=== PATIENT | female | born 1955 | race Caucasian/White ===

== ENCOUNTER 2024-11-19 08:35 | Emergency (ER) | payer OTHER, MEDICAID, SELFPAY ==
--- OUTSIDE RECORDS SUMMARY | 2024-11-19 08:37 | XMS_ITS | Clinical Summary ---
Author Organization Counts include 234 beds at the [facility] Address [address], [place] [address] Care Team Providers Care Dye Range Tender Name Role Phone Erica Landa MD Primary Care Provider [phone] Source Comments You are receiving this document as you are listed as the primary care provider,follow-up provider, or the patient has been referred to you for consultation.This is in compliance with the Medicare and[facility] Hospital[facility] EHR Incentive Program,which states Providers who transition their patient to another setting of careor provider of care or refers their patient to another provider of care shouldprovide summary care record for each transition of care or referral. [facility] All[facility] Active Allergy Reactions Criticality Noted Date Comments Codeine 11/17/2005 Other reaction(s): *Unknown Meperidine Nausea And Vomiting 11/17/2005 Olanzapine Confusion,Other, see comments 12/06/2012 Pain Quetiapine Confusion 07/22/2018 delusions Risperidone Confusion 07/22/2018 Valproic Acid Confusion 07/22/2018 Medications ARIPiprazole (ABILIFY MAINTENA) 400 MG injectionIndic ations:Schizop hrenia Inject 200 mg intramuscularly every 4 weeks. NOTE DOSE IS 1ML NOT FULL 2ML. Next Due: 12/23/15 Indications: Schizophrenia 11/25/19 16 Active Additional Information Patient not taking.Reported on 03/08/2019 haloperidol decanoate (AKA HALDOL DECONOATE) 100 MG/ML injectionIndic ations:Schizop hrenia Inject 1 mL intramuscularly every 4 weeks. Next due 12/10/15. Indications: Schizophrenia 12/10/19 16 Active haloperidol (HALDOL) 10 MG tablet 01/30/20 19 Active Active Problems Problem Noted Date Diagnosed Date Schizoaffective disorder, ch ronic condition with acute exacerbation 11/24/2015 Schizoaffective disorder 11/19/2015 Social History Tobacco Use Types Packs/Day Years Used Date Smoking Tobacco: Every Day Cigarettes Smokeless Tobacco: Never Alcohol Use Standard Drinks/Week Comments No 0 (1 standard drink = 0.6 oz pur e alcohol) Comments Unknown Sex and Gender Information Value Date Recorded Sex Assigned at Not on file Legal Sex Female 7:25 AM CDT Gender Identity Not on file Sexual Orientation Not on file Last Filed Vital Signs Vital Sign Reading Time Taken Comments Blood Pressure 91/56 03/08/2019 11:17 AM CDT Pulse 110 03/08/2019 11:17 AM CDT Temperature 36.7 C (98.1 F) 03/08/2019 9:58 AM CDT Respiratory Rate 16 03/08/2019 9:58 AM CDT Oxygen Saturation 96% 03/08/2019 9:58 AM CDT Inhaled Oxygen Concentration - - Weight 90.6 kg (199 lb 12.8 oz) 11/23/2015 8:44 AM MIG TIG WELDER Height 160 cm (5' 3) 11/19/2015 10:22 PM MIG TIG WELDER Body Mass Index 35.39 11/19/2015 10:22 PM MIG TIG WELDER Plan of Treatment Health Maintenance Due Date Last Done Comments Colon Cancer Screening Plan Due 1955 Hep C Screening (Preventive Services) 1955 Mammogram 1955 DTaP/Tdap/Td (1 - Tdap) 1975 Pneumococcal 50+ Yrs (1 of 2 - PCV) 1975 Cholesterol 2001 Zoster/Shingles (1 of 2) 2006 Dexa 2021 COVID-19 Vaccine (2 - 2023-2 5 season) 2024 02/04/2021 Influenza (#1) 2024 Medicare Annual Wellness Visit 09/26/2024 RSV (1 - 1-dose 75+ series) 2031 HepA Aged Out No longer eligi ble based on patient's age to complete this topic HepB Aged Out No longer eligi ble based on patient's age to complete this topic Hib Aged Out No longer eligi ble based on patient's age to complete this topic IPV (Polio) Aged Out No longer eligi ble based on patient's age to complete this topic MCV4 Aged Out No longer eligi ble based on patient's age to complete this topic Meningococcal B Aged Out No longer el igible based on patient's age to complete this topic Insurance [facility] [address] [facility] Advance Directives * Full Code (Latest Code Status on File) Date Activated Date Inactivated Comments 11/19/2015 10:05 PM 11/25/2015 7:24 PM Care Teams Dye Range Tender Relationship Specialty Start Date End Date Erica Landa MD [address] [place] [address] PCP - General Obstetrics Gynecology 07/22/22
--- OUTSIDE RECORDS SUMMARY | 2024-11-19 08:37 | XMS_ITS | Encounter Summary ---
Author Organization [facility] Address [address] [place] [address] Care Team Providers Care Sales Technician Home Theater Name Role Phone Erica Landa MD Primary Care Provider [phone] Encounter Details Date Type Department Care Team (Late st Contact Info) Description 11/20/2015 Consent for Procedure/Treatme nt [facility] INFORMED CONSENT NEUROLEPTIC MEDICATIONS Social History Tobacco Use Types Packs/Day Years Used Date Smoking Tobacco: Every Day Cigarettes Alcohol Use Standard Drinks/Week Comments No 0 (1 standard drink = 0.6 oz pur e alcohol) Comments Unknown Sex and Gender Information Value Date Recorded Sex Assigned at Not on file Legal Sex Female 7:25 AM CDT Gender Identity Not on file Sexual Orientation Not on file documented as of this encounter Plan of Treatment Not on file documented as of this encounter Visit Diagnoses Not on filedocumented in this encounter Care Teams Sales Technician Home Theater Relationship Specialty Start Date End Date Erica Landa MD [address] [place] [address] PCP - General Obstetrics Gynecology 07/22/22 documented as of this encounter
--- OUTSIDE RECORDS SUMMARY | 2024-11-19 08:37 | XMS_ITS | Clinical Summary ---
Author Organization [facility] Address [address] [place] [address] Care Team Providers Care Coat Hanger Shaper Machine Operator Name Role Phone Erica Landa MD Primary Care Provider [phone] Allergies Active Allergy Reactions Criticality Noted Date Comments Aripiprazole Hallucinations 07/09/2021 Codeine *Unknown 11/17/2005 Benztropine Other - Describe In Comment Field 07/09/2022 suicidal thoughts Meperidine *Unknown,Nausea And Vomiting 11/17/2005 Divalproex Sodium Hallucinations 07/22/2018 [place] Psychosis 10/31/2019 Olanzapine Hallucinations,Other - Describe In Comment Field 12/06/2012 Pain Risperidone Hallucinations 07/22/2018 Quetiapine Hallucinations 07/22/2018 delusions Medications ibuprofen (ADVIL; MOTRIN) 600 mg tabletIndications :Acute midline low back pain without sciatica,Bilatera l hip pain Take 1 Tablet (600 mg) by mouth 4 times daily if needed for Pain. Maximum of 3200 mg in 24 hours. 40 Tablet 08/13/20 24 Active haloperidol decanoate (HaldoL Decanoate) 100 mg/mL intramuscular injection Inject intramuscular one time. 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 Noncompliance 12/05/2018 Hypokalemia 12/05/2018 Pituitary adenoma 08/21/2018 Pes planus 07/30/2013 Schizoaffective disorder, bipolar type 7 HYPERPROLACTINEMIA 01/07/2004 AMENORRHEA 01/03/2004 HERNIA, UMBILICAL W/O OBSTRUCTION/GANGRENE 01/02 TOBACCO USE Resolved Problems Problem Noted Date Diagnosed Date Resolved Date Delusional thoughts 08/21/2012 12/07/19 19 Anal pruritus 05/26/2011 07/02/2013 External hemorrhoids without mention of complication 05/26/2011 07/02/2013 Low back pain 03/28/2011 07/02/2013 Colon cancer screening 06/11/201007/02 Encounter for long-term (cur rent) use of other medications 10/04/2007 07/02/2013 PITUITARY ADENOMA 01/07/2004 07/02/2013 Overview (03/18/2009): last prolactin normal 03/04 off of medication - plan to see Dr. Sauceda summer 2009 for repeat MRI and prolactin measurement. Encounters Date Type Department Care Team Description 10/03/2024 Telephone [facility] [address] [place] [address] oLri Jeong PA Appointment 10/01/2024 Telephone [facility] [address] [place] [address] Erica Landa MD Questions 09/17/2024 11:00 AM RETAIL ACCOUNT REPRESENTATIVE Nurse/Clinic Staff Only [facility] [address] [place] [address] Injection (Medication) 09/17/2024 Travel 09/14/2024 Telephone [facility] [address] [place] [address] Cristina Ann MD 09/14/2024 Telephone [facility] [address] [place] [address] rEica Landa MD Questions 09/05/2024 10:15 AM RETAIL ACCOUNT REPRESENTATIVE Office Visit [facility] [address] [place] [address] Cristina Ann MD Medication Management 09/05/2024 Travel 09/03/2024 Telephone [facility] [address] [place] [address] Cristina Ann MD Health Maintenance Update (Requesting Call Back) 08/30/2024 11:20 AM RETAIL ACCOUNT REPRESENTATIVE Office Visit [facility] [address] [place] [address] Humera Avendano MD Consult (Off balance x 1 year ) 08/30/2024 Travel from Last 3 Months Family History Medical History Relation Name Comments Good Health Brother 1 Good Health Brother 2 Good Health Brother 3 Good Health Brother 4 Good Health Father Bipolar disorder Maternal Aunt Other Mother Parkinson's Dis ease Good Health Sister Cancer-breast No Family History Relation Name Status Comments Brother 1 Alive Brother 2 Alive Brother 3 Alive Brother 4 Alive Father Alive Maternal Aunt Mother Alive Sister Alive Social History Tobacco Use Types Packs/Day Years Used Date Smoking Tobacco: Some Days Cigarettes 1 16.1 Started: 2008 Smokeless Tobacco: Never Tobacco Cessation:Ready to Q uit: No; Counseling Given: Yes Comments:Using Nicotine inhaler once in awhile Alcohol Use Standard Drinks/Week Comments Not Currently 0 (1 standard drink = 0.6 oz pur e alcohol) rare use PHQ-2 Answer Date Recorded PHQ-2 TOTAL SCORE 0 09/05/2024 Social Connections Answer Date Recorded Do you often feel lonely or isolated from those around you? 0 04/10/2024 Alcohol Use Answer Date Recorded How often do you have a drink containing alcohol ? 1 11/01/2021 How many drinks containing a lcohol do you have on a typical day when you are drinking? 0 11/01/2021 How often do you have five or more drinks on one occasion? 0 11/01/2021 Financial Resource Strain Answer Date R ecorded Difficulty of Paying Living Expenses 2 04/10/2024 Difficulty of Paying Living Expenses 1 04/10/2024 Food Insecurity Answer Date Recorded Do you worry your food will run out before you are able to buy more? 2 04/10/2024 Transportation Needs Answer Date Record ed Does lack of transportation keep you from medica l appointments? 1 04/10/2024 Does lack of transportation keep you from work, meetings or getting things that you need? 1 04/10/2024 Housing Stability Answer Date Recorded What is your housing situation today? 1 04/10/2024 Interpersonal Safety Answer Date Record ed Are you being hit, kicked, p ushed or yelled at (see row info)? No 05/24/2024 Interpersonal Safety Abuse 12 - 18 Not on file 05/24/2024 Interpersonal Safety Ambulatory Vulnerability No t on file 05/24/2024 Utilities Answer Date Recorded Do you have trouble paying f or utilities (for example, heat, electricity, water, phone)? 2 04/10/2024 Comments No Sex and Gender Information Value Date Recorded Sex Assigned at Not on file Legal Sex Female 5:24 AM RETAIL ACCOUNT REPRESENTATIVE Gender Identity Not on file Sexual Orientation Not on file Occupation Industry Job Start Date Job End Date Unemployed Not on file Not on file Not on file Obstetrics History Para Term AB IAB SAB Ectopic Multiple Livin g Live Births 2 2 2 2 Date Outcome GA Total Labor Labor/2nd/3rd Weight Sex Type Anes PTL Lilia A1 A5 Name Clin 1984 Term 1986 Term Last Filed Vital Signs Vital Sign Reading Time Taken Comments Blood Pressure 98/62 09/05/2024 10:28 AM RETAIL ACCOUNT REPRESENTATIVE Pulse 105 09/05/2024 10:28 AM RETAIL ACCOUNT REPRESENTATIVE Temperature 36.7 C (98.1 F) 05/24/2024 4:19 AM CDT Respiratory Rate 18 05/24/2024 4:19 AM CDT Oxygen Saturation 96% 08/30/2024 11:10 AM RETAIL ACCOUNT REPRESENTATIVE Inhaled Oxygen Concentration - - Weight 88.9 kg (196 lb) 09/05/2024 10:28 AM RETAIL ACCOUNT REPRESENTATIVE Height 160 cm (5' 3) 05/24/2024 4:16 AM CDT Body Mass Index 34.72 05/24/2024 4:16 AM CDT Plan of Treatment Health Maintenance Due Date Last Done Comments Tdap 1967 Hepatitis C screening for ag e 18-79 1974 Pneumococcal series for age 50+ (1 of 2 - PCV) 1975 Tetanus booster [address] (for lung CA) ag e 50-80 2006 Zoster (shingles) series for age 50+ (1 of 2) 2006 Mammogram for age 45-75 07/11/2019 07/11/20 18, 06/28/2018, 03/08/2016, Additional history exists Colonoscopy through age 75 06/15/2020 06/15/2010 DEXA/DXA scan for age 65+ 2021 Medicare Wellness for age 65+ 2021 BMI (ht and wt on same day) for age 18+ 01/25/2023 01/25/2022, 11/25/2021, 07/09/2021, Additional history exists COVID-19 vaccine series ( season) 2024 02/04/2021 Influenza for age 65+ 05/27/2024 Depression screening for age 12+ 09/05/2025 09/05/2024, 09/05/2024, 09/03/2024, Additional history exists Lipids for age 45-75 11/03/2026 11/03/2021, 07/09/2016, 06/19/2014, Additional history exists RSV vaccine for adults or (1 - 1-dose 75+ series) 2031 Medical Devices Implanted Type Area Coal Chute Worker Device Identifier Shelf Expiration Date Model / Serial / Lot Plate 95mm 8 Hole One-Third Tubular - [id number] Implanted:Qty: 1 on 07/10/2022 by Deejay Banuelos MD at [facility] Right: Ankle [employer] [id number] / / NA Screw Sm Joint 3.5x34mm Axsos Jeremiah Titnm - [id number] Implanted:Qty: 1 on 07/10/2022 by Deejay Banuelos MD at [facility] Right: Ankle [employer] [id number] / / NA Screw Sm Joint 3.5x36mm Axsos Jeremiah Titnm - [id number] Implanted:Qty: 2 on 07/10/2022 by Deejay Banuelos MD at [facility] Right: Ankle [employer] [id number] / / NA Distal Anterolateral Tibia Plate Implanted:Qty: 1 on 07/10/2022 by Deejay Banuelos MD at [facility] Right: Ankle [employer] [id number] / / NA Screw Sm Joint 4x42mm Axsos Lock - [id number] Implanted:Qty: 1 on 07/10/2022 by Deejay Banuelos MD at [facility] Right: Ankle [employer] [id number] / / NA Screw Sm Joint 4x44mm Axsos Lock - [id number] Implanted:Qty: 2 on 07/10/2022 by Deejay Banuelos MD at [facility] Right: Ankle [employer] [id number] / / NA Screw Sm Joint 4x46mm Axsos Lock - [id number] Implanted:Qty: 1 on 07/10/2022 by Deejay Banuelos MD at [facility] Right: Ankle [employer] [id number] / / NA Screw Sm Joint 3.5x12mm Variax 2 Lock Titnm - [id number] Implanted:Qty: 2 on 07/10/2022 by Deejay Banuelos MD at [facility] Right: Ankle [employer] [id number] / / NA Screw Sm Joint 3.5x12mm Variax 2 Bone - [id number] Implanted:Qty: 1 on 07/10/2022 by Deejay Banuelos MD at [facility] Right: Ankle [employer] [id number] / / NA Screw Sm Joint 3.5x16mm Variax 2 Bone - [id number] Implanted:Qty: 2 on 07/10/2022 by Deejay Banuelos MD at [facility] Right: Ankle [employer] [id number] / / NA Screw Sm Joint 3.5x22mm Variax 2 Bone - [id number] Implanted:Qty: 1 on 07/10/2022 by Deejay Banuelos MD at [facility] Right: Ankle [employer] [id number] / / NA 2.7mm Nonlocking Screw Implanted:Qty: 1 on 07/10/2022 by Deejay Banuelos MD at [facility] Right: Ankle [employer] [id number] / / NA 2.7mm Nonlocking Screw Implanted:Qty: 1 on 07/10/2022 by Deejay Banuelos MD at [facility] Right: Ankle [employer] [id number] / / NA Screw Sm Joint 3.5x24mm Axsos Jeremiah Titnm - [id number] Implanted:Qty: 1 on 07/10/2022 by Deejay Banuelos MD at [facility] Right: Ankle [employer] [id number] / / NA Explanted Type Area Coal Chute Worker Device Identifier Shelf Expiration Date Model / Serial / Lot Screw Sm Joint 3.5x30mm Axsos Jeremiah Titnm - [id number] Explanted:Qty: 1 on 07/10/2022 by Deejay Banuelos MD at [facility] Right: Ankle [employer] [id number] / / NA Screw Sm Joint 3.5x34mm Axsos Jeremiah Titnm - [id number] Explanted:Qty: 1 on 07/10/2022 by Deejay Banuelos MD at [facility] Right: Ankle [employer] [id number] / / NA K-Wire [place] 10pk - [id number] Explanted:Qty: 2 on 07/10/2022 by Deejay Banuelos MD at [facility] Right: Ankle [employer] [id number] / / NA K-Wire 1.1p145sa St-St - [id number] Explanted:Qty: 3 on 07/10/2022 at [facility] Right: Ankle [employer] [id number] / / NA Procedures Procedure Name Priority Date/Time Associated Diagnosis Comments LIPID PANEL Early AM 11/03/2021 6:32 AM RETAIL ACCOUNT REPRESENTATIVE XR MAMMO [place] BILAT ADDL VIEWS Routine 07/11/2018 12:00 AM CDT Abnormal mammogram SCAN-COLONOSCOPY 06/15/2010 12:0 0 AM CDT from Last 3 Months or Most Recently Relevant to Health Maintenance Results * (ABNORMAL) LIPID PANEL (11/03/2021 6:32 AM RETAIL ACCOUNT REPRESENTATIVE) CHOLESTEROL,TOTAL 159 100 - 199 mg/dL 11/03/2021 6:34 PM RETAIL ACCOUNT REPRESENTATIVE [facility] TRIGLYCERIDES 111 <150 mg/dL 11/03/2021 6:34 PM [facility] HDL CHOLESTEROL 38(L) >40 mg/dL 6:34 PM RETAIL ACCOUNT REPRESENTATIVE [facility] NON-HDL CHOLESTEROL 121 <145 mg/dl 11/03/2021 6:34 PM [facility] CHOL/HDL RATIO 4.18 <4.50 11/03/2021 6:34 PM RETAIL ACCOUNT REPRESENTATIVE [facility] LDL CHOLESTEROL 99 <=130 mg/dL 11/03/2021 6:34 PM [facility] VLDL CHOLESTEROL 22 <=30 mg/dL 11/03/2021 6:34 PM [facility] PROVIDER ORDERED STATUS RANDOM 11/03/2021 6:34 PM [facility] Blood BLOOD SPECIMEN / Unknown Venipuncture / Unknown 11/03/2021 6:32 AM RETAIL ACCOUNT REPRESENTATIVE 11/03/2021 6:54 AM RETAIL ACCOUNT REPRESENTATIVE us Mario Reyna MD CHEMISTRY Final Result [facility] [address] [place] [address], [place] * XR MAMMO [place] BILAT ADDL VIEWS (07/11/2018 12:00 AM CDT) Anatomical Region Laterality Modality BREASTS, Breast Left, Breast Right Mammography us Humera Avendano MD MAMMO Edited Result - Final * SCAN-COLONOSCOPY (06/15/2010 12:00 AM CDT) us Scanner OTHER Final Result from Last 3 Months or Most Recently Relevant to Health Maintenance Insurance MEDICAID MEDICARE PART A HB ONLY [employer] CHOICE PPO MR Advance Directives Documents on File Type Date Recorded Patient [address] Justice Expl anation Healthcare Directive 04/12/2006 [employer] [place] TRIAGE Healthcare Directive 04/12/2006 * Full Code (Latest Code Status on File) Date Activated Date Inactivated Comments 07/06/2022 5:42 PM 07/16/2022 2:36 PM Question Answer Comments Code Status Discussion: Reviewed Preferences * Full Code Date Activated Date Inactivated Comments 11/02/2021 7:20 AM 11/16/2021 8:47 PM Question Answer Comments Code Status Discussion: Reviewed Preferences * Full Code Date Activated Date Inactivated Comments 11/01/2021 1:33 AM 11/02/2021 7:20 AM Question Answer Comments Code Status Discussion: Unable to Assess Preferences, Provider to review later * Full Code Date Activated Date Inactivated Comments 05/04/2021 8:53 PM 05/27/2021 4:20 PM Question Answer Comments Code Status Discussion: Not Discussed * Full Code Date Activated Date Inactivated Comments 04/01/2020 10:33 PM 04/15/2020 3:43 PM Question Answer Comments Code Status Discussion: Not Discussed Care Teams Coat Hanger Shaper Machine Operator Relationship Specialty Start Date End Date Erica Landa MD [address] [place] [address] PCP - General Family Practice 11/22/19
[2024-11-19 08:41] VITALS: BP 135/76; PULSE 83; RESP 16; TEMP 36.4; O2SAT 97
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
--- OUTSIDE RECORDS SUMMARY | 2024-11-19 09:09 | XMS_ITS | Clinical Summary ---
Author Organization [facility] Address [address] [place] [id number] Care Team Providers Care Navy Senior Officer Name Role Phone Erica Landa MD Primary Care Provider [phone] Allergies Active Allergy Reactions Criticality Noted Date Comments Aripiprazole Hallucinations 07/09/2021 Codeine *Unknown 11/17/2005 Benztropine Other - Describe In Comment Field 07/09/2022 suicidal thoughts Meperidine *Unknown,Nausea And Vomiting 11/17/2005 Divalproex Sodium Hallucinations 07/22/2018 [place] Psychosis 10/31/2019 Olanzapine Hallucinations,Other - Describe In [...] Type Department Care Team Description 10/03/2024 [place] [facility] [place] [address] [place] [address] Lori Jeong PA Appointment 10/01/2024 Telephone [facility] [address] [place] [address] Erica Landa MD Questions 09/17/2024 11:00 AM BUILDING CARPENTER Nurse/Clinic Staff Only [facility] [address] [place] [address] Injection (Medication) 09/17/2024 Travel 09/14/2024 Telephone [facility] [address] [place] [address] Cristina Ann MD 09/14/2024 Telephone [facility] [address] [place] [address] Erica Landa MD Questions 09/05/2024 10:15 AM BUILDING CARPENTER Office Visit [facility] [address] [place] [address] Cristina Ann MD Medication Management 09/05/2024 Travel 09/03/2024 Telephone [facility] [address] [place] [address] Cristina Ann MD Health Maintenance Update (Requesting Call Back) 08/30/2024 11:20 AM BUILDING CARPENTER [place] [facility] [place] [address] [place] [address] Humera Avendano MD Consult (Off balance x [...] on file Legal Sex Female 5:24 AM BUILDING CARPENTER Gender Identity Not on file Sexual Orientation [...] Comments Blood Pressure 98/62 09/05/2024 10:28 AM BUILDING CARPENTER Pulse 105 09/05/2024 10:28 AM BUILDING CARPENTER Temperature 36.7 C (98.1 F) 05/24/2024 4:19 AM CDT Respiratory Rate 18 05/24/2024 4:19 AM CDT Oxygen Saturation 96% 08/30/2024 11:10 AM BUILDING CARPENTER Inhaled Oxygen Concentration - - Weight 88.9 kg (196 lb) 09/05/2024 10:28 AM BUILDING CARPENTER Height 160 cm (5' 3) 05/24/2024 4:16 [...] series) 2031 Medical Devices Implanted Type Area Utility Accounts Director Device Identifier Shelf Expiration Date Model / Serial / Lot Plate 95mm 8 Hole One-Third Tubular - [id number] Implanted:Qty: 1 on 07/10/2022 by Deejay Banuelos MD at [facility] Right: Ankle [employer] [id number] / / NA Screw Sm Joint 3.5x34mm Axs[employer] Jeremiah Titnm - [id number] Implanted:Qty: 1 on 07/10/2022 by Deejay Banuelos MD at [facility] Right: Ankle [employer] [id number] / / NA Screw Sm Joint 3.5x36mm Axs[employer] Jeremiah Titnm - [id number] Implanted:Qty: 2 on 07/10/2022 by Deejay Banuelos MD at [facility] Right: Ankle [employer] [id number] / / NA Distal Anterolateral Tibia Plate Implanted:Qty: 1 on 07/10/2022 by Deejay Banuelos MD at [facility] Right: Ankle [employer] [id number] / / NA Screw Sm Joint 4x42mm A[employer] Lock - [id number] Implanted:Qty: 1 on 07/10/2022 by Deejay Banuelos MD at [facility] Right: Ankle [employer] [id number] / / NA Screw Sm Joint 4x44mm [employer] Lock - [id number] Implanted:Qty: 2 on 07/10/2022 by Deejay Banuelos MD at [facility] Right: Ankle [employer] [id number] / / NA Screw Sm Joint 4x46mm A[employer] Lock - [id number] Implanted:Qty: 1 on 07/10/2022 by Deejay Banuelos MD at [facility] Right: Ankle [employer] [id number] / / NA Screw Sm Joint 3.5x12mm Variax 2 Lock Titnm - [id number] Implanted:Qty: 2 on 07/10/2022 by Deejay Banuelos MD at [facility] Right: Ankle [employer] [id number] / / NA Screw Sm Joint 3.5x12mm Variax 2 Bone - [id number] Implanted:Qty: 1 on 07/10/2022 by Deejay Banuelos MD at [facility] Right: Ankle [employer] [id number] / / NA Screw Sm Joint 3.5x16mm Variax 2 Bone - [id number] Implanted:Qty: 2 on 07/10/2022 by Deejay Banuelos MD at [facility] Right: Ankle [employer] [id number] / / NA Screw Sm Joint 3.5x22mm Variax 2 Bone - [id number] Implanted:Qty: 1 on 07/10/2022 by Deejay Banuelos MD at [facility] Right: Ankle [employer] [id number] / / NA 2.7mm Nonlocking Screw Implanted:Qty: 1 on 07/10/2022 by Deejay Banuelos MD at [facility] Right: Ankle [employer] [id number] / / NA 2.7mm Nonlocking Screw Implanted:Qty: 1 on 07/10/2022 by Deejay Banuelos MD at [facility] Right: Ankle [employer] [id number] / / NA Screw Sm Joint 3.5x24mm Axsos Jeremiah Titnm - [id number] Implanted:Qty: 1 on 07/10/2022 by Deejay Banuelos MD at [facility] Right: Ankle [employer] [id number] / / NA Explanted Type Area Utility Accounts Director Device Identifier Shelf Expiration Date Model / Serial / Lot Screw Sm Joint 3.5x30mm Axsos Jeremiah Titnm - [id number] Explanted:Qty: 1 on 07/10/2022 by Deejay Banuelos MD at [facility] Right: Ankle [employer] [id number] / / NA Screw Sm Joint 3.5x34mm Axsos Jeremiah Titnm - [id number] Explanted:Qty: 1 on 07/10/2022 by Deejay Banuelos MD at [facility] Right: Ankle [employer] [id number] / / NA K-Wire [place] 10pk - [id number] Explanted:Qty: 2 on 07/10/2022 by Deejay Banuelos MD at [facility] Right: Ankle [employer] [id number] / / NA K-Wire 1.4d751fr St-St - [id number] Explanted:Qty: 3 on 07/10/2022 at [facility] Right: Ankle [employer] [id number] / / NA Procedures Procedure Name Priority Date/Time Associated Diagnosis Comments LIPID PANEL Early AM 11/03/2021 6:32 AM BUILDING CARPENTER XR MAMMO [place] BILAT ADDL VIEWS Routine 07/11/2018 12:00 AM CDT Abnormal mammogram SCAN-COLONOSCOPY 06/15/2010 12:0 0 AM CDT from Last 3 Months or Most Recently Relevant to Health Maintenance Results * (ABNORMAL) LIPID PANEL (11/03/2021 6:32 AM BUILDING CARPENTER) CHOLESTEROL,TOTAL 159 100 - 199 mg/dL 11/03/2021 6:34 PM BUILDING CARPENTER [facility] TRIGLYCERIDES 111 <150 mg/dL 11/03/2021 6:34 PM [facility] HDL CHOLESTEROL 38(L) >40 mg/dL 6:34 PM BUILDING CARPENTER [facility] NON-HDL CHOLESTEROL 121 <145 mg/dl 11/03/2021 6:34 PM [facility] CHOL/HDL RATIO 4.18 <4.50 11/03/2021 6:34 PM BUILDING CARPENTER [facility] LDL CHOLESTEROL 99 <=130 mg/dL 11/03/2021 6:34 PM [facility] VLDL CHOLESTEROL 22 <=30 mg/dL 11/03/2021 6:34 PM [facility] PROVIDER ORDERED STATUS RANDOM 11/03/2021 6:34 PM [facility] Blood BLOOD SPECIMEN / Unknown Venipuncture / Unknown 11/03/2021 6:32 AM BUILDING CARPENTER 11/03/2021 6:54 AM BUILDING CARPENTER us Mario Reyna MD CHEMISTRY Final Result [facility] [address] [place] [address], [place] * XR MAMMO [place] BILAT ADDL [...] Documents on File Type Date Recorded Patient Wardrobe Consultant Expl anation Healthcare Directive 04/12/2006 [employer] [place] [...] Code Status Discussion: Not Discussed Care Teams [employer] Senior Officer Relationship Specialty Start Date End Date Erica Landa MD [address] [place] [address] PCP - General Family Practice 11/22/19
--- OUTSIDE RECORDS SUMMARY | 2024-11-19 09:09 | XMS_ITS | Encounter Summary ---
Author Organization [facility] Address [address] [place] [address] Care Team Providers Care Cutting Machine Operator Helper Name Role Phone Erica Landa MD Primary Care Provider [phone] Encounter Details Date Type Department Care Team [...] on filedocumented in this encounter Care Teams Cutting Machine Operator Helper Relationship Specialty Start Date End Date Erica Landa MD [address] [place] [address] PCP - General Obstetrics Gynecology 07/22/22 documented as of this encounter
--- OUTSIDE RECORDS SUMMARY | 2024-11-19 09:09 | XMS_ITS | Clinical Summary ---
Author Organization [facility] Address [address], [place] [address] Care Team Providers Care Bottom Turner Name Role Phone Erica Landa MD Primary Care Provider [phone] Source Comments You are receiving this document as you are listed as the primary care provider,follow-up provider, or the patient has been referred to you for consultation.This is in compliance with the Medicare and[facility] System[facility] EHR Incentive Program,which states Providers who transition their patient to another setting of careor provider of care or refers their patient to another provider of care shouldprovide summary care record for each transition of care or referral. [facility] Active Allergy Reactions Criticality Noted Date [...] (199 lb 12.8 oz) 11/23/2015 8:44 AM POLISHING MACHINE OPERATOR Height 160 cm (5' 3) 11/19/2015 10:22 PM POLISHING MACHINE OPERATOR Body Mass Index 35.39 11/19/2015 10:22 PM POLISHING MACHINE OPERATOR Plan of Treatment Health Maintenance Due Date [...] patient's age to complete this topic Insurance [facility] [place] [address] [place] [address] [facility] Advance Directives * Full Code (Latest Code Status on File) Date Activated Date Inactivated Comments 11/19/2015 10:05 PM 11/25/2015 7:24 PM Care Teams Bottom Turner Relationship Specialty Start Date End Date Erica Landa MD [address] [place] [address] PCP - General Obstetrics Gynecology 07/22/22
[2024-11-19] MEDS: ONDANSETRON 2 MG/ML inj 4 MG IVP (09:21)
[2024-11-19] MEDS: 0.9 % SODIUM CHLORIDE 1000 ml 1,000 ML IV (09:21)
[2024-11-19 09:46] LABS: Basophils Absolute Auto 0.03 K/uL (0.00-0.30); Basophils Percent Auto 0.4 % (0.0-3.0); Eosinophils Absolute Auto 0.02 K/uL (0.00-0.50); Eosinophils Percent Auto 0.2 % (0.0-7.0); Hematocrit 43.9 % (33.0-51.0); Hemoglobin* 14.4 gm/dL (12.0-16.0); Immature Granulocytes Abs Auto 0.01 K/uL (0.00-0.30); Immature Granulocytes Pct Auto 0.1 %; Lymphocytes Percent Auto 14.8 % (20-44); Mean Corpuscular HGB Conc 33 gm/dL (32-36); Mean Corpuscular Hemoglobin 32 pg (26-34); Mean Corpuscular Volume 99 fL (80-100); Monocytes Percent Auto 4.4 % (0.0-11.0); Neutrophils Percent Auto 80.1 % (42.0-72.0); Platelet Count* 379 K/uL (140-440); RDW Coefficient of Variation % 12.7 % (11.5-15.5); Red Blood Count 4.44 m/uL (4.00-5.20); White Blood Count* 8.02 K/uL (4.50-11.00)
[2024-11-19 09:50] LABS: Slide Review Reflex No
[2024-11-19 09:51] LABS: Lactate* 1.8 mmol/L (0.5-1.9)
[2024-11-19] MEDS: KETOROLAC 15 MG/ML inj IVP (10:10)
[2024-11-19 10:16] LABS: Albumin* 3.9 g/dL (3.3-5.0)
[2024-11-19 10:17] LABS: Chloride* 101 mmol/L (96-114); Potassium* 3.7 mmol/L (3.6-5.1); Sodium* 138 mmol/L (135-149)
[2024-11-19 10:19] LABS: Alkaline Phosphatase* 63 U/L (40-150); Anion Gap 7 mEq/L (7-15); Aspartate Amino Transferase* 18 U/L (12-35); Bilirubin Total* 0.4 mg/dL (0.1-1.5); Blood Urea Nitrogen* 11 mg/dL (7-30); Carbon Dioxide* 30 mmol/L (20-32); Creatinine* 0.7 mg/dL (0.5-1.5); Estimated Glomerular Filt Rate 94 ml/min; Magnesium* 1.8 mg/dL (1.5-2.6); Total Protein* 6.8 g/dL (6.0-8.3)
[2024-11-19 10:20] LABS: Alanine Aminotransferase* 15 U/L (4-35); Glucose* 151 mg/dL (60-115); Lipase* 54 U/L (23-300)
[2024-11-19 10:23] LABS: Ethanol* < 0.00 % (0.01-0.03)
--- NOTE | 2024-11-19 10:42 | CRLHL7_ITS ---
For Patients: As a result of the Century Cures Act, medical imaging exams and procedure reports are released immediately into your electronic medical record. You may view this report before your referring provider. If you have questions, please contact your health care provider. INDICATION: Abdominal pain with nausea and vomiting. TECHNIQUE: CT abdomen and pelvis acquired with 90 cc Isovue 370 IV contrast. COMPARISON: None. FINDINGS: Lower chest: Unremarkable. Liver: Unremarkable. Normal in size and attenuation. No suspicious masses. Gallbladder and bile ducts: Large gallbladder stone. No sign of inflammation or biliary dilatation. Pancreas: Unremarkable. No mass or inflammation. Spleen: Unremarkable. Normal in size. No masses. Adrenal glands: Unremarkable. No nodules. Kidneys: Unremarkable. No suspicious masses, stones, or hydronephrosis. GI tract: Unremarkable. Normal in caliber. No sign of mass or inflammation. Normal appendix. Vasculature: Abdominal aorta is normal in caliber. Mesenteric arteries are patent. Lymph nodes: Moderate enlargement of a right pelvic sidewall lymph node measuring 1.8 x 1.2 cm on series 2, image 138. Mildly enlarged left pelvic sidewall lymph node measuring 1.4 x 1.0 cm series 2, image 143. Multiple borderline to mildly prominent bilateral inguinal lymph nodes also present. No sign of lymphadenopathy elsewhere. Peritoneum/Abdominal Wall: Unremarkable. No sign of mass or infiltration. No free air or significant free fluid. Pelvis: Moderate fluid-filled distention of the endometrium. Pelvic organs otherwise unremarkable. Bones: Compression fracture deformity of the inferior endplate of the L3 vertebral body appears acute/subacute. No other significant abnormality IMPRESSION: 1. Large gallbladder stone without evidence of inflammation or biliary dilatation. 2. Moderate fluid-filled distention of the endometrium is abnormal for a postmenopausal patient. This is nonspecific. A neoplastic process must be considered. 3. Multiple mildly enlarged bilateral pelvic sidewall and inguinal lymph nodes. This is nonspecific. This could be inflammatory or neoplastic in nature. 4. Please note that all CT scans at this facility use dose modulation, iterative reconstruction, and/or weight-based dosing when appropriate to reduce radiation dose to as low as reasonably achievable. Dictated by Sergei Kline MD @ 11/19/2024 12:06:02 PM (Electronically Signed)
[2024-11-19 13:01] VITALS: BP 104/53; PULSE 91; RESP 16; O2SAT 96
[2024-11-19 13:23] LABS: Appearance Urine Clear (Clear); Bilirubin Urine Negative (Negative); Blood Urine Negative (Negative); Color Urine Yellow (Yellow); Glucose Urine Negative (Negative); Ketones Urine Negative (Negative); Leukocyte Esterase Urine Negative (Negative); Nitrite Urine Negative (Negative); Protein Urine Negative (Negative); Specific Gravity Urine 1.015 (1.000-1.030); Urobilinogen Urine 0.2 (0.2-1.0); pH Urine 8.5 (5.0-8.5)
[2024-11-19 13:30] LABS: RBC Urine 0-2 (0-2); Squamous Epithelial Cell Urine Moderate (None-Few); WBC Urine 0-2 (0-5)
== END 2024-11-19 15:11 | disposition home or self-care (01) ==
PROVIDERS: Emergency Provider Family Medicine
DX: R10.9 Unspecified abdominal pain (principal); R93.89 Abnormal findings on diagnostic imaging of other specified body structures
CPT/HCPCS: 36415; 74177; 76705; 80053; 81001; 82077; 83605; 83690; 83735; 84484; 85025; 87631; 93005; 96361; 96374; 96375; 99284; 99285; J1885; J2405; J7030; Q9967

== ENCOUNTER 2024-11-22 10:55 | Outpatient (CLI) | payer OTHER, MEDICAID, SELFPAY | END 2024-11-22 10:56 | disposition home or self-care (01) | LOC: NFLDREF 11-24 12:40 | PROVIDERS: Visit Provider Nurse Practitioner Family | DX: Z13.6 Encounter for screening for cardiovascular disorders (principal) | CPT/HCPCS: 80061 ==

== ENCOUNTER 2024-11-24 04:55 | Emergency (ER) | payer OTHER, MEDICAID, SELFPAY ==
--- OUTSIDE RECORDS SUMMARY | 2024-11-24 04:58 | XMS_ITS | Clinical Summary ---
Author Organization [facility] Address [address], [place] [address] Care Team Providers Care Lead Custodian Name Role Phone Erica Landa MD Primary Care Provider [phone] Source Comments You are receiving this document as you are listed as the primary care provider,follow-up provider, or the patient has been referred to you for consultation.This is in compliance with the Medicare andThe [facility] System[facility] EHR Incentive Program,which states Providers who transition their patient to another setting of careor provider of care or refers their patient to another provider of care shouldprovide summary care record for each transition of care or referral. [facility] Allergies Active Allergy Reactions Criticality Noted Date [...] (199 lb 12.8 oz) 11/23/2015 8:44 AM VICE PRESIDENT OF TALENT ACQUISITION Height 160 cm (5' 3) 11/19/2015 10:22 PM VICE PRESIDENT OF TALENT ACQUISITION Body Mass Index 35.39 11/19/2015 10:22 PM VICE PRESIDENT OF TALENT ACQUISITION Plan of Treatment Health Maintenance Due Date [...] patient's age to complete this topic Insurance [facility] [address] [facility] Advance Directives * Full Code (Latest Code Status on File) Date Activated Date Inactivated Comments 11/19/2015 10:05 PM 11/25/2015 7:24 PM Care Teams Lead Custodian Relationship Specialty Start Date End Date Erica Landa MD [address] [place] [address] PCP - General Obstetrics Gynecology 07/22/22
--- OUTSIDE RECORDS SUMMARY | 2024-11-24 04:58 | XMS_ITS | Encounter Summary ---
Author Organization [facility] Address [address] [place] [address] Care Team Providers Care Size Worker Name Role Phone Erica Landa MD Primary Care Provider [phone] Encounter Details Date Type Department Care Team [...] on filedocumented in this encounter Care Teams Size Worker Relationship Specialty Start Date End Date Erica Landa MD [address] [place] [address] PCP - General Obstetrics Gynecology 07/22/22 documented as of this encounter
--- OUTSIDE RECORDS SUMMARY | 2024-11-24 04:58 | XMS_ITS | Clinical Summary ---
Author Organization [facility] Address [address] [place] [address] Care Team Providers Care Kindergarten Instructional Assistant Name Role Phone Erica Landa MD Primary Care Provider [phone] Allergies Active Allergy Reactions Criticality Noted Date Comments Aripiprazole Hallucinations 07/09/2021 Codeine *Unknown 11/17/2005 Benztropine Other - Describe In Comment Field 07/09/2022 suicidal thoughts Meperidine *Unknown,Nausea And Vomiting 11/17/2005 Divalproex Sodium Hallucinations 07/22/2018 Edgar Psychosis 10/31/2019 Olanzapine Hallucinations,Other - Describe In [...] Type Department Care Team Description 10/03/2024 Telephone [facility] [address] [place] [address] Lori Jeong PA Appointment 10/01/2024 Telephone [facility] [address] [place] [address] Erica Landa MD Questions 09/17/2024 11:00 AM LAB ANIMAL TECHNICIAN Nurse/Clinic Staff Only [facility] [address] [place] [address] Injection (Medication) 09/17/2024 Travel 09/14/2024 Telephone [facility] [address] [place] [address] Cristina Ann MD 09/14/2024 Telephone [facility] [address] [place] [address] Erica Landa MD Questions 09/05/2024 10:15 AM LAB ANIMAL TECHNICIAN Office Visit [facility] [address] [place] [address] Cristina Ann MD Medication Management 09/05/2024 Travel 09/03/2024 Telephone [facility] [address] [place] [address] Cristina Ann MD Health Maintenance Update (Requesting Call Back) 08/30/2024 11:20 AM LAB ANIMAL TECHNICIAN Office Visit [facility] [address] [place] [address] Humera Avendano MD Consult (Off balance x [...] Date Smoking Tobacco: Some Days Cigarettes 1 16.2 Started: 2008 Smokeless Tobacco: Never Tobacco Cessation:Ready [...] on file Legal Sex Female 5:24 AM LAB ANIMAL TECHNICIAN Gender Identity Not on file Sexual Orientation [...] Comments Blood Pressure 98/62 09/05/2024 10:28 AM LAB ANIMAL TECHNICIAN Pulse 105 09/05/2024 10:28 AM LAB ANIMAL TECHNICIAN Temperature 36.7 C (98.1 F) 05/24/2024 4:19 AM CDT Respiratory Rate 18 05/24/2024 4:19 AM CDT Oxygen Saturation 96% 08/30/2024 11:10 AM LAB ANIMAL TECHNICIAN Inhaled Oxygen Concentration - - Weight 88.9 kg (196 lb) 09/05/2024 10:28 AM LAB ANIMAL TECHNICIAN Height 160 cm (5' 3) 05/24/2024 4:16 [...] series) 2031 Medical Devices Implanted Type Area Driver Examiner Device Identifier Shelf Expiration Date Model / Serial / Lot Plate 95mm 8 Hole One-Third Tubular - [id number] Implanted:Qty: 1 on 07/10/2022 by Deejay Banuelos MD at [facility] Right: Ankle [employer] [id number] / / NA Screw Sm Joint 3.5x34mm Axs[employer] Jeremiah Titnm - [id number] Implanted:Qty: 1 on 07/10/2022 by Deejay Banuelos MD at [facility] Right: Ankle [employer] [id number] / / NA Screw Sm Joint 3.5x36mm Axsos Jeremiha Titnm - [id number] Implanted:Qty: 2 on 07/10/2022 by Deejay Banuelos MD at [facility] Right: Ankle [employer] [id number] / / NA Distal Anterolateral Tibia Plate Implanted:Qty: 1 on 07/10/2022 by Deejay Banuelos MD at [facility] Right: Ankle [employer] [id number] / / NA Screw Sm Joint 4x42mm Axsos Lock - [id number] Implanted:Qty: 1 on 07/10/2022 by Deejay Banuelos MD at [facility] Right: Ankle [employer] [id number] / / NA Screw Sm Joint 4x44mm Axsos Lock - [id number] Implanted:Qty: 2 on 07/10/2022 by Deejay Banuelos MD at [facility] Right: Ankle [employer] [id number] / / NA Screw Sm Joint 4x46mm Axsos Lock - [id number] Implanted:Qty: 1 on 07/10/2022 by Deejay Banuelos MD at [facility] Right: Ankle [employer] [id number] / / NA Screw Sm Joint 3.5x12mm Variax 2 Lock Titnm - [id number] Implanted:Qty: 2 on 07/10/2022 by Deejay Banuelos MD at [facility] Right: Ankle [employer] [id number] / / NA Screw Sm Joint 3.5x12mm Variax 2 Bone - [id number] Implanted:Qty: 1 on 07/10/2022 by Deejay Banuelos MD at [facility] Right: Ankle [employer] [id number] / / NA Screw Sm Joint 3.5x16mm Variax 2 Bone - [id number] Implanted:Qty: 2 on 07/10/2022 by Deejay Banuelos MD at [facility] Right: Ankle [employer] [id number] / / NA Screw Sm Joint 3.5x22mm Variax 2 Bone - [id number] Implanted:Qty: 1 on 07/10/2022 by Deejay Banuelos MD at [facility] Right: Ankle [employer] [id number] / / NA 2.7mm Nonlocking Screw Implanted:Qty: 1 on 07/10/2022 by Deejay Banuelos MD at [facility] Right: Ankle [employer] [id number] / / NA 2.7mm Nonlocking Screw Implanted:Qty: 1 on 07/10/2022 by Deejay Banuelos MD at [facility] Right: Ankle [employer] [id number] / / NA Screw Sm Joint 3.5x24mm Axsos Jeremiah Titnm - [id number] Implanted:Qty: 1 on 07/10/2022 by Deejay Banuelos MD at [facility] Right: Ankle [employer] [id number] / / NA Explanted Type Area Driver Examiner Device Identifier Shelf Expiration Date Model / Serial / Lot Screw Sm Joint 3.5x30mm Axsos Jeremiah Titnm - [id number] Explanted:Qty: 1 on 07/10/2022 by Deejay Banuelos MD at [facility] Right: Ankle [employer] [id number] / / NA Screw Sm Joint 3.5x34mm Axsos Jeremiah Titnm - [id number] Explanted:Qty: 1 on 07/10/2022 by Deejay Banuelos MD at [facility] Right: Ankle [employer] [id number] / / NA K-Wire [place] 10pk - [id number] Explanted:Qty: 2 on 07/10/2022 by Deejay Banuelos MD at [facility] Right: Ankle [employer] [id number] / / NA K-Wire 1.2i658fu St-St - [id number] Explanted:Qty: 3 on 07/10/2022 at [facility] Right: Ankle [employer] [id number] / / NA Procedures Procedure Name Priority Date/Time Associated Diagnosis Comments LIPID PANEL Early AM 11/03/2021 6:32 AM LAB ANIMAL TECHNICIAN XR MAMMO [place] BILAT ADDL VIEWS Routine 07/11/2018 12:00 AM CDT Abnormal mammogram SCAN-COLONOSCOPY 06/15/2010 12:0 0 AM CDT from Last 3 Months or Most Recently Relevant to Health Maintenance Results * (ABNORMAL) LIPID PANEL (11/03/2021 6:32 AM LAB ANIMAL TECHNICIAN) CHOLESTEROL,TOTAL 159 100 - 199 mg/dL 11/03/2021 6:34 PM LAB ANIMAL TECHNICIAN [facility] TRAL [facility]ORAT[facility] TRIGLYCERIDES 111 <150 mg/dL 11/03/2021 6:34 PM [facility] HDL CHOLESTEROL 38(L) >40 mg/dL 6:34 PM LAB ANIMAL TECHNICIAN [facility] TRAL LABORATORY NON-HDL CHOLESTEROL 121 <145 mg/dl 11/03/2021 6:34 PM [facility] TRAL LAB[facility]ORY CHOL/HDL RATIO 4.18 <4.50 11/03/2021 6:34 PM LAB ANIMAL TECHNICIAN [facility] TRAL LABOR[facility] LDL CHOLESTEROL 99 <=130 mg/dL 11/03/2021 6:34 PM [facility] VLDL CHOLESTEROL 22 <=30 mg/dL 11/03/2021 6:34 PM [facility] TR[facility] PROVIDER ORDERED STATUS RANDOM 11/03/2021 6:34 PM [facility] Blood BLOOD SPECIMEN / Unknown Venipuncture / Unknown 11/03/2021 6:32 AM LAB ANIMAL TECHNICIAN 11/03/2021 6:54 AM LAB ANIMAL TECHNICIAN us Mario Reyna MD CHEMISTRY Final Result [facility] 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
[2024-11-24 05:04] VITALS: BP 131/80; PULSE 80; RESP 16; TEMP 36.3; O2SAT 98; BMI 32.6
[2024-11-24] MEDS: ONDANSETRON ODT 4 MG TAB 8 MG PO (05:34)
[2024-11-24] MEDS: KETOROLAC 30 MG/ML inj 60 MG IM (05:35)
--- NOTE | 2024-11-24 05:43 | ED.NURSE ---
Pt not wanting to leave the room, refusing to leave the ER. Security present and has asked pt to discharge. Pt putting clothes on and leaving ER at this time.
--- NOTE | 2024-11-25 21:50 | ED_ITS ---
HPI - Abdominal Pain General Date Seen: 11/23/24 Chief Complaint: Abdominal Pain Stated Complaint: gallbladder attack Time Seen by Provider: 11/24/24 05:13 History of Present Illness HPI narrative: Patient is a 69-year-old female with severe mental illness who presents with complaints of right upper quadrant abdominal pain. She refused to give any history to the index clerk or the nurse, merely saying that she needs pain medication. She was much more willing to talk to me. She ate bread shrimp last evening and within a couple of hours developed right upper quadrant pain. She is known to have a large gallstone. She was seen by her new PCP in the clinic recently but they did not discuss her gallstone issue. The visit was focused on some concerning findings in her pelvis and she has been referred to sound installation worker for that evaluation. Her only medication is Depo Haldol as she has had intolerance is to numerous other meds for her bipolar disorder. Her mental illness has been a barrier to care in the past. She denies vomiting but does have some nausea. No diarrhea. Her gallbladder ultrasound done four days ago shows stones and sludge but no evidence of acute cholecystitis. She denies fevers or chills. She has not been seen by general surgeon yet. Related Data Home Medications ?Medication ?Instructions ?Recorded ?Confirmed haloperidol decanoate 100 mg/mL mg IM .qmonth bipolar 12/01/23 11/22/24 intramuscular solution Previous Rx's ?Medication ?Instructions ?Recorded ondansetron 8 mg disintegrating 8 mg PO Q8H PRN nausea and 11/24/24 tablet vomiting #20 tabs tramadol 50 mg tablet 50 mg PO TID PRN pain #20 tabs 11/24/24 Allergies Allergy/AdvReac Type Severity Reaction Status Date / Time aripiprazole (From Abilify) Allergy Verified 11/24/24 05:06 divalproex sodium (From Allergy Verified 11/24/24 05:06 Depakote) lithium Allergy Verified 11/24/24 05:06 olanzapine Allergy Hallucinati Verified 11/24/24 05:06 ng risperidone (From Risperdal) Allergy Verified 11/24/24 05:06 Review of Systems Narrative Review of systems is outlined above otherwise noted to be negative. [facility] Medical History (Updated 11/24/24 @ 05:27 by Mario Uriarte MD) Tobacco abuse ?Z72.0 - Tobacco use (ICD-10) Bipolar disorder ?F31.9 - Bipolar disorder, unspecified (ICD-10) Abnormal collection of fluid in uterine cavity ?N85.8 - Other specified noninflammatory disorders of uterus (ICD-10) Surgical History History of open reduction and internal fixation (ORIF) procedure (~2022) ?Z98.890 - Other specified postprocedural states (ICD-10) Status post ORIF of fracture of ankle (1980) ?Z98.890 - Other specified postprocedural states (ICD-10) ?Z87.81 - Personal history of (healed) traumatic fracture (ICD-10) Family History (Updated 11/22/24 @ 12:37 by Yasemin Spencer [facility]) Father Stroke Mother Parkinsons disease Social History (Updated 11/22/24 @ 10:58 by Marilou Brown ~ [facility]) What is your current living situation?: I presently have a place to live In the past 12 months, utilities in danger of being shut off: no In past 12 months, lack of transportation kept you from medical appts, meetings, work, or getting things needed for daily living: no In the past 12 mos, have been you worried that your food would run out before you had money to buy more?: never true In the past 12 mos, the food you bought just didn't last and you didn't have money to buy more?: never true Smoking Status: Former smoker What tobacco products do you use: cigarettes S moking quit date/years: <= 15 years ago Do you use any of these nicotine containing products: E-Cigarettes Second hand tobacco smoke exposure: No Non-prescribed substance use: denies use How often does anyone, including family, friends and others, physically hurt you : never How often does anyone, including family, friends and others, insult or talk down to you: never How often does anyone, including family, friends and others, threaten you with harm: never How often does anyone, including family, friends and others, scream or curse at you: never Exam Narrative: Exam Narrative: Vitals noted. She is lying on her side and is willing to speak with me. Her mood and affect appear normal albeit flat. No abnormal thought processes are identified. She seems to be an adequate historian. HEENT: Conjunctiva clear. Neck is supple without adenopathy, thyromegaly, carotid bruit. Lungs: Clear to auscultation in all caraballo. No wheezes, rales, rhonchi. Heart: Regular rate and rhythm without murmur. Abdomen: Soft with tenderness in the right upper quadrant. No guarding, rigidity, rebound. No palpable mass. Bowel sounds are normal. No palpable masses. Extremities: No cyanosis or edema. Good distal pulses. Skin: No abnormalities noted of the exposed skin. Neurologic: Awake, alert, fully oriented. Neurologic exam is nonfocal. Course Course ED Course: Patient is seen and examined. I do not see any need for further diagnostic workup. She declines an IV. She is given Toradol 60 mg IM and Zofran 8 mg orally with good relief of her symptoms. She is anxious for discharge. We had a good discussion regarding the need to contact her PCP and arrange for a general surgery referral. She needs to avoid all fatty and greasy foods is able likely trigger further biliary colic. She expresses understanding. I did send in prescriptions for Zofran and some tramadol to use for pain in the interim. All questions were answered. Vital Signs Vital signs: Initial Vital Signs Temperature 97.3 F L 11/24/24 05:04 Temperature Source Temporal Artery Scan 11/24/24 05:04 Pulse Rate 80 11/24/24 05:04 Pulse Rhythm Regular 11/24/24 05:04 Pulse Strength 3+ Normal 11/24/24 05:04 Respiratory Rate 16 11/24/24 05:04 Blood Pressure 131/80 11/24/24 05:04 Blood Pressure Mean 97 11/24/24 05:04 Blood Pressure Position Supine 11/24/24 05:04 Pulse Oximetry 98 11/24/24 05:04 Oxygen Delivery Method Room Air 11/24/24 05:04 Vital Signs Temperature 97.3 F L 11/24/24 05:04 Pulse Rate 80 11/24/24 05:04 Respiratory Rate 16 11/24/24 05:04 Blood Pressure 131/80 11/24/24 05:04 Pulse Oximetry 98 11/24/24 05:04 Oxygen Delivery Method Room Air 11/24/24 05:04 Temperature 97.3 F L 11/24/24 05:04 Pulse Rate 80 11/24/24 05:04 Respiratory Rate 16 11/24/24 05:04 Blood Pressure 131/80 11/24/24 05:04 Pulse Oximetry 98 11/24/24 05:04 Oxygen Delivery Method Room Air 11/24/24 05:04 Medications Administered Medications: Discontinued Medications Generic Name Dose Route Start Last Admin Trade Name Freq PRN Reason Stop Dose Admin Ketorolac Tromethamine 60 mg 11/24/24 05:24 11/24/24 05:35 Ketorolac 30 Mg/Ml Inj IM 11/24/24 05:25 60 mg ONCE ONE Administration Ondansetron HCl 8 mg 11/24/24 05:24 11/24/24 05:34 Ondansetron Odt 4 Mg Tab PO 11/24/24 05:25 8 mg ONCE ONE Administration Discharge Plan Discharge Clinical Impression: Biliary colic Patient Disposition: Home, Self-Care Condition: Improved Instructions: Biliary Colic (ED) Additional Instructions: Avoid all fatty or greasy foods. Use Tylenol and Ibuprofen for pain. Take Tramadol when pain is severe. Use Zofran for nausea. Follow up with Dr Spencer next week. You need a referral to a surgeon to have your gallbladder removed. Activity Level: No Restrictions Discharge Diet: Regular Prescriptions: New ondansetron 8 mg tablet,disintegrating 8 mg PO Q8H PRN (Reason: nausea and vomiting) Qty: 20 0RF tramadol 50 mg tablet 50 mg PO TID PRN (Reason: pain) Qty: 20 0RF No Action haloperidol decanoate 100 mg/mL solution IM .qmonth Follow Up/Referrals: Provider,Not a Local [Primary Care Provider] - Stand Alone Forms: [facility] Inst[facility]
== END 2024-11-24 05:43 | disposition home or self-care (01) ==
LOC: ED 05:40
PROVIDERS: Emergency Provider Family Medicine
DX: K80.50 Calculus of bile duct without cholangitis or cholecystitis without obstruction (principal)
CPT/HCPCS: 96372; 99282; 99283; A9270; J1885

== ENCOUNTER 2024-11-27 13:48 | Outpatient (CLI) | payer OTHER, MEDICAID, SELFPAY ==
--- NOTE | 2024-11-27 13:45 | CRLHL7_ITS ---
For Patients: As a result of the Century Cures Act, medical imaging exams and procedure reports are released immediately into your electronic medical record. You may view this report before your referring provider. If you have questions, please contact your health care provider. INDICATION: Uterine fluid on CT COMPARISON: CT 11/19/2024 TECHNIQUE: 2D metcalf scale and color Doppler images were acquired of the pelvis using a transabdominal and transvaginal approach. FINDINGS: Sonographic images demonstrate a normal size and smooth outer contour of the uterus. Uterus measures 9.1 cm in length by 4.2 cm in AP diameter by 4.3 cm in transverse dimension. No uterine fibroid. The endometrial lining appears heterogeneous with multiple cystic areas and measures 12.0 mm in composite thickness. Fluid is present within the endocervical canal. Small cervical nabothian cysts also present. The right ovary measures 2.3 x 1.3 x 2.1 cm in size and the left ovary is not visualized. The right ovary demonstrates normal arterial and venous blood flow on color Doppler analysis, as visualized. There are no suspicious fluid collections within the cul-de-sac. IMPRESSION: Fluid in the endocervical canal along with thickened endometrium with heterogeneous/multicystic morphology measuring up to 12 millimeters. Gynecologic consultation recommended. Dictated by Mario Armstrong MD @ 11/28/2024 7:03:04 AM (Electronically Signed)
== END 2024-11-27 13:49 | disposition home or self-care (01) ==
PROVIDERS: PCP Nurse Practitioner Family; Visit Provider Nurse Practitioner Family
DX: N85.8 Other specified noninflammatory disorders of uterus (principal); R93.89 Abnormal findings on diagnostic imaging of other specified body structures
CPT/HCPCS: 76830; 76856

== ENCOUNTER 2025-04-12 16:00 | Outpatient (CLI) | payer OTHER, MEDICAID, SELFPAY | END 2025-04-12 16:01 | disposition home or self-care (01) | PROVIDERS: PCP Nurse Practitioner Family; Visit Provider Emergency Medicine Emergency Medical Services | DX: F29 Unspecified psychosis not due to a substance or known physiological condition (principal) | CPT/HCPCS: A0425; A0429 ==